=== PATIENT | male | born 1965 | race Caucasian/White ===

== ENCOUNTER → 2018-11-18 | Outpatient (CLI) | payer OTHER ==
--- NOTE | 2018-11-29 08:36 | PF ---
[address] [address] PULMONARY FUNCTION REPORT Name: JORGE HINTON Room: [facility] M.R.#: [id number] Admission: 11/18/18 Attend Phys: Severo Metzger MD Discharge: Date of : 65 Report #: [id number] THIS REPORT FOR: //name// CC: Charisma Metzger DATE OF SERVICE: 11/18/2018 Pulmonary function test performed on 11/18/2018. The FEV1/FVC ratio is normal at 72% with in forced vital capacity normal at 108% and FEV1 normal at 101%. The [id number] is also normal at 75%. After the administration of a bronchodilator, there is no significant change in any of these values. The patient's post-bronchodilator FEV1 is noted to be 3.97 liters. The total lung capacity is normal at 100% with a residual volume mildly decreased to 76%. The DLCO as adjusted for hemoglobin is normal at 84%. The flow volume loop is concave upwards. IMPRESSION: 1. The spirometry is normal with the exception that the flow volume loop is concave upwards. Minimal underlying obstruction can lead to this picture. Clinical correlation is advised. 2. Essentially normal lung volumes except that residual volume is mildly decreased to 76%. Again, clinical correlation is advised. 3. The DLCO as adjusted for hemoglobin is normal at 84%. <ELECTRONICALLY SIGNED> By: John Viera MD 11/29/18 [id number] alina Salazar
== END ==
LOC: M.PUL 09:50
DX: R06.09 Other forms of dyspnea (principal)